=== PATIENT | male | born 1945 | race Caucasian/White ===

== ENCOUNTER → 2019-06-22 | Outpatient (CLI) | payer MEDICARE ==
[~2019-06-22] MED LIST: ALLO300 PO; ASPI325; ASPI81CH PO; ATOR10; Aspirin EC81 MG; CRUTCH USE; Cialis5 MG; GABA300 PO; IBUP800 PO; LISI20 PO; MULTI VITAMIN1 EACH PO; OXYACE7.5T PO; RANI150 PO; RXOXYACE PO; Simvastatin20 MG PO; VITAMIN D3400 UNIT PO; Zyloprim300 MG PO; [UNRECOGNIZED DRUG - OTHER]
[2019-06-22 12:30] LABS: BASOPHILS ABSOLUTE AUTO 0.02 K/mm3 (0.00-0.23); BASOPHILS PERCENT AUTO 0 % (0-2); EOSINOPHILS ABSOLUTE AUTO 0.15 K/mm3 (0.00-0.68); EOSINOPHILS PERCENT AUTO 2 % (0-6); Hematocrit 38.9 % (37.0-53.0); Hemoglobin 13.2 g/dL (13.5-17.5); IMMATURE GRAN ABSOLUTE AUTO 0.02 K/mm3 (0.00-0.10); IMMATURE GRAN PERCENT AUTO 0 % (0-1); LYMPHOCYTES ABSOLUTE AUTO 1.91 K/mm3 (0.84-5.20); LYMPHOCYTES PERCENT AUTO 29 % (21-46); MONOCYTES ABSOLUTE AUTO 0.65 K/mm3 (0.16-1.47); MONOCYTES PERCENT AUTO 10 % (4-13); Mean Corpuscular HGB 30.2 pg (26.0-34.0); Mean Corpuscular HGB Conc 33.9 g/dL (31.5-36.5); Mean Corpuscular Volume 89 fL (80-100); Mean Platelet Volume 9.9 fL (9.1-12.4); NEUTROPHILS ABSOLUTE AUTO 3.81 K/mm3 (1.96-9.15); NEUTROPHILS PERCENT AUTO 58 % (41-73); Platelet Count 238 K/mm3 (150-400); RDW Coefficient Variation 13.4 % (11.7-14.2); Red Blood Cell Count 4.37 M/mm3 (4.30-5.90); White Blood Cell Count 6.56 K/mm3 (4.00-11.30)
== END | disposition home or self-care (01) ==
LOC: LAB EV 12:23 → LAB SHORT 12:23
PROVIDERS: Physician Assistant Surgical
DX: E86.0 Dehydration (principal)
CPT/HCPCS: 85025

== ENCOUNTER → 2020-08-27 | Outpatient (CLI) | payer OTHER | END | disposition home or self-care (01) | LOC: PLD 16:15 → LAB SHORT 16:15 | DX: D22.5 Melanocytic nevi of trunk (principal); D22.72 Melanocytic nevi of left lower limb, including hip | CPT/HCPCS: 88305 ==

== ENCOUNTER → 2021-01-21 | Outpatient (CLI) | payer OTHER | END | disposition home or self-care (01) | LOC: PLD 11:30 → LAB SHORT 11:30 | DX: R30.9 Painful micturition, unspecified (principal) | CPT/HCPCS: 87086 ==

== ENCOUNTER → 2021-09-02 | Outpatient (CLI) | payer OTHER ==
[2021-09-02 12:54] LABS: PSA, %Free 16.3 %
== END | disposition home or self-care (01) ==
LOC: LAB SHORT 10:52
PROVIDERS: Family Medicine
DX: N40.0 Benign prostatic hyperplasia without lower urinary tract symptoms (principal); R79.89 Other specified abnormal findings of blood chemistry
CPT/HCPCS: 84153; 84154

== ENCOUNTER → 2022-04-21 | Outpatient (CLI) | payer OTHER | END | disposition home or self-care (01) | LOC: LAB SHORT 18:39 → LAB 18:39 | DX: R30.9 Painful micturition, unspecified (principal) | CPT/HCPCS: 87086 ==

== ENCOUNTER → 2022-04-22 | Outpatient (CLI) | payer OTHER ==
[2022-04-22 11:08] LABS: BASOPHILS ABSOLUTE AUTO 0.03 K/mm3 (0.00-0.23); BASOPHILS PERCENT AUTO 0 % (0-2); EOSINOPHILS ABSOLUTE AUTO 0.16 K/mm3 (0.00-0.68); EOSINOPHILS PERCENT AUTO 2 % (0-6); Hematocrit 40.1 % (37.0-53.0); Hemoglobin 13.6 g/dL (13.5-17.5); IMMATURE GRAN ABSOLUTE AUTO 0.02 K/mm3 (0.00-0.10); IMMATURE GRAN PERCENT AUTO 0 % (0-1); LYMPHOCYTES ABSOLUTE AUTO 2.17 K/mm3 (0.84-5.20); LYMPHOCYTES PERCENT AUTO 24 % (21-46); MONOCYTES ABSOLUTE AUTO 0.85 K/mm3 (0.16-1.47); MONOCYTES PERCENT AUTO 9 % (4-13); Mean Corpuscular HGB 30.4 pg (26.0-34.0); Mean Corpuscular HGB Conc 33.9 g/dL (31.5-36.5); Mean Corpuscular Volume 90 fL (80-100); Mean Platelet Volume 9.8 fL (9.1-12.4); NEUTROPHILS ABSOLUTE AUTO 5.85 K/mm3 (1.96-9.15); NEUTROPHILS PERCENT AUTO 64 % (41-73); Platelet Count 254 K/mm3 (150-400); RDW Standard Deviation 42.9 fL (35.1-46.3); Red Blood Cell Count 4.47 M/mm3 (4.30-5.90); White Blood Cell Count 9.08 K/mm3 (4.00-11.30)
[2022-04-22 11:18] LABS: Albumin, Blood 3.5 g/dL (3.4-5.0); Albumin/Globulin Ratio 1.1 (0.8-1.8); Bilirubin, Total 0.7 mg/dL (0.1-1.0); Bun/Creatinine Ratio 17.9 (12.0-20.0); Calcium, Blood 9.9 mg/dL (8.5-10.1); Creatinine, Blood 0.78 mg/dL (0.60-1.20); Globulin, Blood 3.2 g/dL (2.2-4.0); Potassium, Blood 3.9 mmol/L (3.5-5.5); Total Protein, Blood 6.7 g/dL (6.4-8.2)
== END | disposition home or self-care (01) ==
LOC: LAB 11:01 → LAB SHORT 11:01
PROVIDERS: Chiropractor
DX: R10.32 Left lower quadrant pain (principal)
CPT/HCPCS: 80053; 85025

== ENCOUNTER → 2022-05-13 | Outpatient (CLI) | payer OTHER ==
[2022-05-13 09:01] LABS: BASOPHILS ABSOLUTE AUTO 0.04 K/mm3 (0.00-0.23); BASOPHILS PERCENT AUTO 1 % (0-2); EOSINOPHILS ABSOLUTE AUTO 0.21 K/mm3 (0.00-0.68); EOSINOPHILS PERCENT AUTO 3 % (0-6); Hematocrit 40.7 % (37.0-53.0); Hemoglobin 13.9 g/dL (13.5-17.5); IMMATURE GRAN ABSOLUTE AUTO 0.02 K/mm3 (0.00-0.10); IMMATURE GRAN PERCENT AUTO 0 % (0-1); LYMPHOCYTES ABSOLUTE AUTO 1.68 K/mm3 (0.84-5.20); LYMPHOCYTES PERCENT AUTO 22 % (21-46); MONOCYTES ABSOLUTE AUTO 0.79 K/mm3 (0.16-1.47); MONOCYTES PERCENT AUTO 10 % (4-13); Mean Corpuscular HGB 30.5 pg (26.0-34.0); Mean Corpuscular HGB Conc 34.2 g/dL (31.5-36.5); Mean Corpuscular Volume 90 fL (80-100); Mean Platelet Volume 9.7 fL (9.1-12.4); NEUTROPHILS ABSOLUTE AUTO 4.92 K/mm3 (1.96-9.15); NEUTROPHILS PERCENT AUTO 64 % (41-73); Platelet Count 280 K/mm3 (150-400); RDW Coefficient Variation 12.9 % (11.7-14.2); RDW Standard Deviation 42.3 fL (35.1-46.3); Red Blood Cell Count 4.55 M/mm3 (4.30-5.90); White Blood Cell Count 7.66 K/mm3 (4.00-11.30)
[2022-05-13 09:13] LABS: Albumin, Blood 3.9 g/dL (3.4-5.0); Albumin/Globulin Ratio 1.2 (0.8-1.8); Bilirubin, Total 0.5 mg/dL (0.1-1.0); Bun/Creatinine Ratio 25.8 (12.0-20.0); Calcium, Blood 10.1 mg/dL (8.5-10.1); Creatinine, Blood 0.89 mg/dL (0.60-1.20); Globulin, Blood 3.3 g/dL (2.2-4.0); Potassium, Blood 4.4 mmol/L (3.5-5.5); Total Protein, Blood 7.2 g/dL (6.4-8.2)
== END | disposition home or self-care (01) ==
LOC: LAB 08:56 → LAB SHORT 08:56
PROVIDERS: Physician Assistant
DX: R07.9 Chest pain, unspecified (principal)
CPT/HCPCS: 80053; 84484; 85025

== ENCOUNTER 2023-03-17 13:24 | Inpatient (IN) | payer OTHER ==
[~2023-03-17] VITALS: Ht 188 cm; Wt 89.6 kg
[2023-03-17 14:52] LABS: BASOPHILS ABSOLUTE AUTO 0.02 K/mm3 (0.00-0.23); BASOPHILS PERCENT AUTO 0 % (0-2); EOSINOPHILS ABSOLUTE AUTO 0.52 K/mm3 (0.00-0.68); EOSINOPHILS PERCENT AUTO 5 % (0-6); Hematocrit 37.7 % (37.0-53.0); Hemoglobin 12.5 g/dL (13.5-17.5); IMMATURE GRAN ABSOLUTE AUTO 0.03 K/mm3 (0.00-0.10); IMMATURE GRAN PERCENT AUTO 0 % (0-1); LYMPHOCYTES ABSOLUTE AUTO 0.97 K/mm3 (0.84-5.20); LYMPHOCYTES PERCENT AUTO 10 % (21-46); MONOCYTES ABSOLUTE AUTO 0.83 K/mm3 (0.16-1.47); MONOCYTES PERCENT AUTO 9 % (4-13); Mean Corpuscular HGB 30.2 pg (26.0-34.0); Mean Corpuscular HGB Conc 33.2 g/dL (31.5-36.5); Mean Corpuscular Volume 91 fL (80-100); Mean Platelet Volume 10.4 fL (9.1-12.4); NEUTROPHILS PERCENT AUTO 75 % (41-73); Platelet Count 244 K/mm3 (150-400); RDW Coefficient Variation 13.2 % (11.7-14.2); RDW Standard Deviation 44.2 fL (35.1-46.3); Red Blood Cell Count 4.14 M/mm3 (4.30-5.90); White Blood Cell Count 9.57 K/mm3 (4.00-11.30)
[2023-03-17 15:17] LABS: Albumin, Blood 3.3 g/dL (3.4-5.0); Albumin/Globulin Ratio 1.1 (0.8-1.8); Bilirubin, Total 0.3 mg/dL (0.1-1.0); Bun/Creatinine Ratio 23.5 (12.0-20.0); Calcium, Blood 9.8 mg/dL (8.5-10.1); Creatinine, Blood 0.89 mg/dL (0.60-1.20); Globulin, Blood 3.1 g/dL (2.2-4.0); Magnesium, Blood 2.1 mg/dL (1.6-2.4); Potassium, Blood 4.2 mmol/L (3.5-5.5); Total Protein, Blood 6.4 g/dL (6.4-8.2)
[2023-03-17 16:20] LABS: Source, Urine Voided
[2023-03-17 16:30] LABS: Appearance, Urine Clear (Clear); Bilirubin, Urine Neg (Neg); Blood, Urine Neg (Neg); Color, Urine Yellow (P-Yellow); Glucose Qualitative, Urine Neg (Neg); Ketones, Urine Neg (Neg); Leukocyte Esterase, Urine Neg (Neg); Nitrite, Urine Neg (Neg); Protein, Urine Neg (Neg); Specific Gravity, Urine 1.015 (1.003-1.022); Urobilinogen, Urine NORM (Normal); pH, Urine 6.5 (5.0-8.0)
[2023-03-17] MEDS ORDERED: FAMO20 PO (17:21)
[2023-03-17] MEDS ORDERED: SYNTHROID75 MCG (17:21)
[2023-03-17] MEDS ORDERED: TAMSULOSIN HCL0.4 M1 PO (17:21)
[2023-03-17] MEDS ORDERED: AMLODIPINE BESYL5 MG PO (17:21)
[2023-03-17 20:17] VITALS: BP 144/63
[2023-03-18 03:33] VITALS: BP 167/88
[2023-03-18 05:56] LABS: BASOPHILS ABSOLUTE AUTO 0.01 K/mm3 (0.00-0.23); BASOPHILS PERCENT AUTO 0 % (0-2); EOSINOPHILS ABSOLUTE AUTO 0.37 K/mm3 (0.00-0.68); EOSINOPHILS PERCENT AUTO 5 % (0-6); Hematocrit 39.3 % (37.0-53.0); Hemoglobin 13.1 g/dL (13.5-17.5); IMMATURE GRAN ABSOLUTE AUTO 0.02 K/mm3 (0.00-0.10); IMMATURE GRAN PERCENT AUTO 0 % (0-1); LYMPHOCYTES ABSOLUTE AUTO 1.34 K/mm3 (0.84-5.20); LYMPHOCYTES PERCENT AUTO 19 % (21-46); MONOCYTES ABSOLUTE AUTO 0.66 K/mm3 (0.16-1.47); MONOCYTES PERCENT AUTO 9 % (4-13); Mean Corpuscular HGB Conc 33.3 g/dL (31.5-36.5); Mean Corpuscular Volume 90 fL (80-100); Mean Platelet Volume 9.5 fL (9.1-12.4); NEUTROPHILS PERCENT AUTO 66 % (41-73); Platelet Count 248 K/mm3 (150-400); RDW Coefficient Variation 13.1 % (11.7-14.2); RDW Standard Deviation 43.3 fL (35.1-46.3); Red Blood Cell Count 4.37 M/mm3 (4.30-5.90)
[2023-03-18 06:17] LABS: Albumin, Blood 3.3 g/dL (3.4-5.0); Bilirubin, Total 0.5 mg/dL (0.1-1.0); Bun/Creatinine Ratio 19.8 (12.0-20.0); Calcium, Blood 9.9 mg/dL (8.5-10.1); Creatinine, Blood 0.66 mg/dL (0.60-1.20); Globulin, Blood 3.3 g/dL (2.2-4.0); Potassium, Blood 3.9 mmol/L (3.5-5.5); Total Protein, Blood 6.6 g/dL (6.4-8.2)
--- NOTE | 2023-03-18 06:43 | NUR ---
SUMMARY PT RESTING IN BED WITHOUT COMPLAINT. AT BEDSIDE.NO BM THIS SHIFT.
[2023-03-18 07:33] VITALS: BP 138/60
--- NOTE | 2023-03-18 11:08 | NUR ---
Pt. is awake and sitting up in bed when he welcomes my visit. Spouse is present. Pt. is pleasant, but mildly unsettled by the unknown cause of his ailment. Listen is empathy and a calming presence. Facilitate a life review and establish rapport. Pt. and spouse are people of sabine, so matters of sabine and belief were discussed. Pt. displayed evidence of engagement and trust. Prayed with Pt. and spouse. Pt. and spouse requested this bottle blowing machine tender's contact info, and it was provided, Pt. and spouse verbalized gratitude for the spiritual care visit.
[2023-03-18 11:27] LABS: Adenovirus F 40/41 Not Detected (NOT DETECT); Astrovirus Not Detected (NOT DETECT); Campylobacter Sp Not Detected (NOT DETECT); Cryptosporidium Not Detected (NOT DETECT); Cyclospora Cayetanensis Not Detected (NOT DETECT); E. Coli O157 Not Detected (NOT DETECT); Entamoeba Histolytica Not Detected (NOT DETECT); Enteroaggregative E. coli-EAEC Not Detected (NOT DETECT); Enteropathogenic E. coli-EPEC Not Detected (NOT DETECT); Enterotoxigenic E. coli-ETEC Not Detected (NOT DETECT); Giardia Lamblia Not Detected (NOT DETECT); Norovirus GI/GII Not Detected (NOT DETECT); Plesiomonas Shigelloides Not Detected (NOT DETECT); Rotavirus A Not Detected (NOT DETECT); Salmonella Sp Not Detected (NOT DETECT); Sapovirus Not Detected (NOT DETECT); Shiga Toxin-prod E. coli-STEC Not Detected (NOT DETECT); Shigella/Enteroin E. coli-EIEC Not Detected (NOT DETECT); Vibrio Cholerae Not Detected (NOT DETECT); Vibrio Sp Not Detected (NOT DETECT); Yersinia Enterocolitica Not Detected (NOT DETECT)
--- NOTE | 2023-03-18 11:45 | NUR ---
PT LAYING IN BED VISITING WITH HIS . HELPED HIM TO THE RESTROOM AND BACK TO BED. PT IS SITTING UP IN BED WITH CALL LIGHT WITHIN REACH AND BED ALARM ON.
--- NOTE | 2023-03-18 13:47 | NUR ---
PATIENT STOOD OUT OF BED AND TRIED TO CHANGE HIS CLOTHES. I ASKED HIM WHERE HE WAS AND HE SAID HE WAS IN [place]. DAUGHTER WAS IN THE ROOM AND EXPLAINED TO HIM THAT HE WAS AT THE HOSPITAL IN [place]. PATIENT LAYED BACK IN BED WITH CALL WITHIN REACH AND BED ALARM ON FOR SAFETY.
--- NOTE | 2023-03-18 15:14 | NUR ---
PATIENT SITTING UP IN BED VISITING WITH FAMLIY MEMBERS. CALL LIGHT WITHIN REACH AND BED ALARM ON.
[2023-03-18 16:58] VITALS: BP 130/48
[2023-03-18 18:26] VITALS: BP 142/76
[2023-03-18 19:06] VITALS: BP 135/69
--- NOTE | 2023-03-18 19:27 | NUR ---
SHIFT SUMMARY NO ACUTE CHANGES. PATIENT IS ABLE TO HAVE CLEAR FLUIDS NOW, HE TOLERATED THEM WELL, DENIED NAUSEA OR ABDOMINAL PAIN. PATIENT WAS CONFUSED THROUGHT THE DAY, I HAD TO REORIENT HIM TO PLACE AND REASON. HIS FAMILY VISITED [facility] SATELLITE THE DAY. HE IS ABLE TO AMBULATE TO THE RESTROOM WITH 1 PERSON ASSIST. HE IS CURRENTLY SITTING IN BED VISITING WITH FAMILY MEMBERS. CALL LIGHT WITHIN REACH AND BED ALARM ON.
--- NOTE | 2023-03-18 19:35 | NUR ---
REVIEWED SN DOCUMENTATION
[2023-03-19 02:40] VITALS: BP 119/68
[2023-03-19 07:30] VITALS: BP 116/62
--- NOTE | 2023-03-19 07:37 | NUR ---
SUJMMARY PT REPORTS SLEPT WELL.NO C/O NAUSEA,OR ABD PAIN.
[2023-03-19 09:09] LABS: BASOPHILS ABSOLUTE AUTO 0.02 K/mm3 (0.00-0.23); BASOPHILS PERCENT AUTO 0 % (0-2); EOSINOPHILS ABSOLUTE AUTO 0.71 K/mm3 (0.00-0.68); EOSINOPHILS PERCENT AUTO 10 % (0-6); Hematocrit 37.1 % (37.0-53.0); Hemoglobin 12.5 g/dL (13.5-17.5); IMMATURE GRAN ABSOLUTE AUTO 0.01 K/mm3 (0.00-0.10); IMMATURE GRAN PERCENT AUTO 0 % (0-1); LYMPHOCYTES ABSOLUTE AUTO 1.06 K/mm3 (0.84-5.20); LYMPHOCYTES PERCENT AUTO 16 % (21-46); MONOCYTES ABSOLUTE AUTO 0.69 K/mm3 (0.16-1.47); MONOCYTES PERCENT AUTO 10 % (4-13); Mean Corpuscular HGB 30.6 pg (26.0-34.0); Mean Corpuscular HGB Conc 33.7 g/dL (31.5-36.5); Mean Corpuscular Volume 91 fL (80-100); Mean Platelet Volume 9.9 fL (9.1-12.4); NEUTROPHILS ABSOLUTE AUTO 4.34 K/mm3 (1.96-9.15); NEUTROPHILS PERCENT AUTO 64 % (41-73); Platelet Count 235 K/mm3 (150-400); RDW Standard Deviation 43.1 fL (35.1-46.3); Red Blood Cell Count 4.08 M/mm3 (4.30-5.90); White Blood Cell Count 6.83 K/mm3 (4.00-11.30)
[2023-03-19 10:22] LABS: Albumin, Blood 3.1 g/dL (3.4-5.0); Bilirubin, Total 0.5 mg/dL (0.1-1.0); Bun/Creatinine Ratio 14.4 (12.0-20.0); Calcium, Blood 9.7 mg/dL (8.5-10.1); Creatinine, Blood 0.76 mg/dL (0.60-1.20); Globulin, Blood 3.1 g/dL (2.2-4.0); Potassium, Blood 4.1 mmol/L (3.5-5.5); Total Protein, Blood 6.2 g/dL (6.4-8.2)
[2023-03-19] MEDS ORDERED: ACET325 PO (11:27)
[2023-03-19] MEDS ORDERED: METR500 PO (11:28)
[2023-03-19] MEDS ORDERED: VISBIOME 112.51 EACH PO (11:32)
[2023-03-19] MEDS ORDERED: CIPR500 PO (11:33)
--- NOTE | 2023-03-19 12:35 | NUR ---
PATIENT IN BED SITTING UP AND EATING LUNCH. PATIENT HAS FAMILY VISITING. CALL LIGHT WITHIN REACH, BED ALARM ON.
[2023-03-19 13:40] VITALS: BP 136/84
--- NOTE | 2023-03-19 14:33 | NUR ---
DISCHARGED REVIEWED DC INSTRUCTIONS W/SPOUSE. VERBALIZED UNDERSTANDING. SN TOOK FINAL VS AND DC IV, CATHETER INTACT. PRESCRIPTIONS FAXED TO [employer] PER PT REQUEST. PT LEFT UNIT IN WHEELCHAIR, ACCOMPANIED BY SPOUSE WHO HAD POSSESSIONS AND DC PAPERWORK IN HAND.
--- NOTE | 2023-03-19 14:58 | NUR ---
SHIFT SUMMARY NO ACUTE CHANGES. PATIENT IS NOW ON A LOW FIBER DIET AND IS TOLERATING WELL. DISCHARGE PLANNED FOR AFTER LUNCH. PATIENT HAD A SOFT/LOOSE BM, WAS NOTIFIED OF THE BM AND CONTINUED WITH DISCHARGE. PATIENT DENIED ABDOMINAL PAIN OR TENDERNESS. PATIENT WAS WHEELED OUT TO CAR BY NURSE TRANSITIONAL ACCOMPANIED BY .
--- NOTE | 2023-03-19 16:00 | NUR ---
REVIEWED SN DOCUMENTATION
== END 2023-03-19 14:35 | disposition home or self-care (01) | DRG 393 ==
LOC: ER 13:24 → SURS 13:25
PROVIDERS: Emergency Medicine; Family Medicine; Nurse Practitioner Acute Care; Surgery; ADMIT Family Medicine
DX: K63.89 Other specified diseases of intestine (principal); G92.8 Other toxic encephalopathy; I10 Essential (primary) hypertension; E78.5 Hyperlipidemia, unspecified; M10.9 Gout, unspecified; K21.9 Gastro-esophageal reflux disease without esophagitis; K80.20 Calculus of gallbladder without cholecystitis without obstruction; I48.91 Unspecified atrial fibrillation; G62.9 Polyneuropathy, unspecified; F03.90 Unspecified dementia, unspecified severity, without behavioral disturbance, psychotic disturbance, mood disturbance, and anxiety; E03.9 Hypothyroidism, unspecified; R62.7 Adult failure to thrive; R63.4 Abnormal weight loss; Z96.652 Presence of left artificial knee joint; Z90.49 Acquired absence of other specified parts of digestive tract; Z98.890 Other specified postprocedural states; Z85.46 Personal history of malignant neoplasm of prostate; Z68.28 Body mass index [BMI] 28.0-28.9, adult; Z79.899 Other long term (current) drug therapy; Z91.048 Other nonmedicinal substance allergy status; Z79.811 Long term (current) use of aromatase inhibitors; Z79.82 Long term (current) use of aspirin; Z87.19 Personal history of other diseases of the digestive system
CPT/HCPCS: 36415; 74177; 80053; 81003; 83735; 84439; 84443; 84484; 85025; 87507; 93005; 93010; 96361; 96365-59; 96366; 96368; 99285-25; A9270; C9113; G0378; J1956; J7030; Q9967

== ENCOUNTER → 2023-05-22 | Outpatient (CLI) | payer OTHER ==
[~2023-05-22] MED LIST changes: +ACET325 PO; +AMLODIPINE BESYL5 MG PO; +CIPR500 PO; +FAMO20 PO; +METR500 PO; +SYNTHROID75 MCG; +TAMSULOSIN HCL0.4 M1 PO; +VISBIOME 112.51 EACH PO
[2023-05-22 13:47] LABS: Adenovirus F 40/41 Not Detected (NOT DETECT); Astrovirus Not Detected (NOT DETECT); Campylobacter Sp Not Detected (NOT DETECT); Cryptosporidium Not Detected (NOT DETECT); Cyclospora Cayetanensis Not Detected (NOT DETECT); E. Coli O157 Not Detected (NOT DETECT); Entamoeba Histolytica Not Detected (NOT DETECT); Enteroaggregative E. coli-EAEC Not Detected (NOT DETECT); Enteropathogenic E. coli-EPEC Not Detected (NOT DETECT); Enterotoxigenic E. coli-ETEC Not Detected (NOT DETECT); Giardia Lamblia Not Detected (NOT DETECT); Norovirus GI/GII Not Detected (NOT DETECT); Plesiomonas Shigelloides Not Detected (NOT DETECT); Rotavirus A Not Detected (NOT DETECT); Salmonella Sp Not Detected (NOT DETECT); Sapovirus Not Detected (NOT DETECT); Shiga Toxin-prod E. coli-STEC Not Detected (NOT DETECT); Shigella/Enteroin E. coli-EIEC Not Detected (NOT DETECT); Vibrio Cholerae Not Detected (NOT DETECT); Vibrio Sp Not Detected (NOT DETECT); Yersinia Enterocolitica Not Detected (NOT DETECT)
== END ==
LOC: LAB 09:00 → LAB SHORT 09:00
PROVIDERS: Family Medicine
DX: R19.7 Diarrhea, unspecified (principal)
CPT/HCPCS: 87507

== ENCOUNTER 2024-01-05 12:39 | Day surgery (SDC) | payer OTHER ==
[~2024-01-05] VITALS: Ht 193 cm; Wt 84.5 kg
[~2024-01-05 12:39] MED LIST changes: +AMLO5 PO; -AMLODIPINE BESYL5 MG PO; +CALCIUM 500-VI1 EAC4 PO; +GLUCOSAMINE COMPLEX PO; +Lactated Ringer's 1,000 ML IV ONE; -MULTI VITAMIN1 EACH PO; +MULTI-VITAMIN1 EAC2 PO; -SYNTHROID75 MCG; +SYNTHROID75 MCG PO; +VITAMIN D350 MC3 PO; +propofoL 50 ML IV ONE
[2024-01-05] MEDS ORDERED: Lactated Ringer's 1,000 ML IV ONE (13:29)
[2024-01-05 14:39] VITALS: BP 125/69
== END 2024-01-05 14:40 | disposition home or self-care (01) ==
LOC: ORSCSDS 12:39
PROVIDERS: Specialist
PROC: 0D798ZZ Dilation of Duodenum, Via Natural or Artificial Opening Endoscopic (ICD-10-PCS; principal; 2024-01-05 14:00)
PROC: 0DB68ZX Excision of Stomach, Via Natural or Artificial Opening Endoscopic, Diagnostic (ICD-10-PCS; principal; 2024-01-05 14:00)
DX: R10.13 Epigastric pain (principal); K21.00 Gastro-esophageal reflux disease with esophagitis, without bleeding; K31.5 Obstruction of duodenum; R63.4 Abnormal weight loss; R19.7 Diarrhea, unspecified; Z85.46 Personal history of malignant neoplasm of prostate; I10 Essential (primary) hypertension; E78.5 Hyperlipidemia, unspecified; E07.9 Disorder of thyroid, unspecified; Z79.899 Other long term (current) drug therapy
CPT/HCPCS: 88305; 88312; C1726; J2704; J7120

== ENCOUNTER 2024-01-07 11:51 | Inpatient (IN) | payer OTHER ==
[~2024-01-07] VITALS: Ht 193 cm; Wt 84.6 kg
[~2024-01-07 11:51] MED LIST changes: -Lactated Ringer's 1,000 ML IV ONE; -propofoL 50 ML IV ONE
[2024-01-07] MEDS ORDERED: CHOLESTYRAMI239.4 G1 PO (12:12)
[2024-01-07 12:23] LABS: BASOPHILS ABSOLUTE AUTO 0.02 K/mm3 (0.00-0.23); BASOPHILS PERCENT AUTO 0 % (0-2); EOSINOPHILS ABSOLUTE AUTO 0.24 K/mm3 (0.00-0.68); EOSINOPHILS PERCENT AUTO 5 % (0-6); Hematocrit 36.9 % (37.0-53.0); Hemoglobin 12.4 g/dL (13.5-17.5); IMMATURE GRAN ABSOLUTE AUTO 0.01 K/mm3 (0.00-0.10); IMMATURE GRAN PERCENT AUTO 0 % (0-1); LYMPHOCYTES ABSOLUTE AUTO 0.97 K/mm3 (0.84-5.20); LYMPHOCYTES PERCENT AUTO 18 % (21-46); MONOCYTES ABSOLUTE AUTO 0.48 K/mm3 (0.16-1.47); MONOCYTES PERCENT AUTO 9 % (4-13); Mean Corpuscular HGB 30.5 pg (26.0-34.0); Mean Corpuscular HGB Conc 33.6 g/dL (31.5-36.5); Mean Corpuscular Volume 91 fL (80-100); NEUTROPHILS ABSOLUTE AUTO 3.59 K/mm3 (1.96-9.15); NEUTROPHILS PERCENT AUTO 68 % (41-73); Platelet Count 227 K/mm3 (150-400); RDW Coefficient Variation 12.9 % (11.7-14.2); RDW Standard Deviation 42.5 fL (35.1-46.3); Red Blood Cell Count 4.07 M/mm3 (4.30-5.90); White Blood Cell Count 5.31 K/mm3 (4.00-11.30)
[2024-01-07 12:52] LABS: Albumin, Blood 3.4 g/dL (3.4-5.0); Albumin/Globulin Ratio 1.2 (0.8-1.8); Bilirubin, Total 0.4 mg/dL (0.1-1.0); Bun/Creatinine Ratio 20.1 (12.0-20.0); Calcium, Blood 9.8 mg/dL (8.5-10.1); Creatinine, Blood 0.9 mg/dL (0.60-1.20); Globulin, Blood 2.9 g/dL (2.2-4.0); Potassium, Blood 3.7 mmol/L (3.5-5.5); Total Protein, Blood 6.3 g/dL (6.4-8.2)
[2024-01-07] MEDS ORDERED: Lidocaine HCl 4% Topical Soln 50 ML BTL TOP ONE (15:00)
[2024-01-07] MEDS ORDERED: FLU VACC QS2023-24(6MOS UP)/PF 60 MCG/0.5 ML SYRINGE IM SCH (15:55)
[2024-01-07 18:06] VITALS: BP 141/62
--- NOTE | 2024-01-07 18:30 | NUR ---
ADMISSION PATIENT ADMITTED TO MEDICAL FLOOR. PATIENT ALERT BUT CONFUSED. USING WORD SALAD AT TIMES. STATES THAT THIS IS NORMAL FOR HIM. PATIENT ANXIOUS AND RESTLESS. NG REMOVED PRIOR TO TRANSFER TO MEDICAL FLOOR. PATIENT VERBALIZES CHRONIC BACK PAIN AND R FOOT PAIN FROM RECENT PODIATRY VISIT. PATIENT HAD RECENT ESOPHAGEAL DILATATION AN OUTPATIENT. DURING ADMISSION PROCESS, PATIENT STATED HE NEEDED TO SPIT. PATIENT SPIT OUT A SMALL AMOUNT OF LIZA RED BLOOD. NO CLOTS SEEN. REPORT GIVEN TO BILINGUAL RESEARCH INTERVIEWER. NO FLUIDS ORDERED AT THIS TIME. FAMILY AT BEDSIDE AND CONCERNED ABOUT DEHYDRATION SINCE PATIENT HAS NOT BEEN ABLE TO EAT OR DRINK FOR SOME TIME WITH THIS STRICTURE.
[2024-01-07 20:44] VITALS: BP 125/60
[2024-01-07] MEDS ORDERED: Lactated Ringer's 1,000 ML IV SCH (23:10)
--- NOTE | 2024-01-08 01:32 | NUR ---
MULTIPLE ATTEMPTS TO GET OOB. VERY UNSTEADY ON FEET. BECAME ANGRY AND VERBALLY THREATENING TO STAFF WHEN ENCOURAGED TO GET BACK IN BED FOR HIS SAFETY. CALL PLACED TO MD, ORDERS FOR MARCEL OBTAINED. PLACED IN MARCEL. PT HAD PULLED OUT IV AND REFUSED TO ALLOW ANOTHER PLACED. TEACHING RE NPO FOR ESOPAHAGEAL AND STOMACH ISSUE AND THAT HE NEEDED THE IV FLUIDS FOR HYDRATION. BECAME VERY AGITATED. CALL PLACED TO HIS . SPOKE TO HIM, HE BECAME AGITATED WITH HER AND HUNG UP. TO COME IN WITH DAUGHTER TO ENCOURAGE PT TO COMPLY WITH MEDICAL REGIMINE. CALL LIGHT IN REACH. RAIL SUP X 3. MARCEL INTACT
--- NOTE | 2024-01-08 02:01 | NUR ---
AND DAUGHTER HERE, TALKING TO PT. CALL LIGHT IN REACH
--- NOTE | 2024-01-08 04:45 | NUR ---
STRUCTURAL STEEL WORKER SUMMARY VSS. FAMILY WS HERE AT SHIFT COMMENCE. PT SEEMED TO BE MORE RECEPTIVE TO CARE. FAMILY LEFT. PT PO FOR ESOPHAGEAL AND STOMACH ISSUES - SEE ER DOCUMENTATION. CALL WAS PLACED TO MD BUSINESS FUNCTIONAL ANALYST FOR IVF PT WAS NPO AND WAS FOR HYDRATION. WHEN STAFF CAME IN TO ROOM TO START IVF, PT HAD PULLED OUT IV AND WAS CLIMBING OOB, VERY UNTEADY AND CONFRONTATIONAL WITH STAFF. REFUSED TO CALM DOWN. CALL PLACED TO MARCEL CRAWFORD ORDERS OBTAINED FOR PT SAFETY - VERY UNSTEADDY AND REFUSED TO REMAIN IN BED. PT CONTINUED TO ESCALAATE. WAS NOTIFIED AND SHE AND DAUGHTER CAME BACK TO HOSPITAL. PT WAS IN MARCEL UNTIL FAMILY COULD TALK HIM INTO ACCEPTING IVF. NEW IV STARTED AND IVF OF LR INFUSING AT 75 ML/HR. MARCEL DC'D AT 0400. HAS BEEN RESTING QUIETLY WITH OCCASIONAL EPISODES OF WAKEFULNESS SINCE. FAMILY AT BEDSIDE FOR PT COMFORT. CALL LIGHT IN REACH. RAILS UP X 3 FOR SAFETY
[2024-01-08 05:54] LABS: BASOPHILS ABSOLUTE AUTO 0.02 K/mm3 (0.00-0.23); BASOPHILS PERCENT AUTO 0 % (0-2); EOSINOPHILS ABSOLUTE AUTO 0.15 K/mm3 (0.00-0.68); EOSINOPHILS PERCENT AUTO 2 % (0-6); Hematocrit 36.5 % (37.0-53.0); Hemoglobin 12.3 g/dL (13.5-17.5); IMMATURE GRAN ABSOLUTE AUTO 0.02 K/mm3 (0.00-0.10); IMMATURE GRAN PERCENT AUTO 0 % (0-1); LYMPHOCYTES ABSOLUTE AUTO 1.05 K/mm3 (0.84-5.20); LYMPHOCYTES PERCENT AUTO 12 % (21-46); MONOCYTES ABSOLUTE AUTO 0.76 K/mm3 (0.16-1.47); MONOCYTES PERCENT AUTO 9 % (4-13); Mean Corpuscular HGB 30.1 pg (26.0-34.0); Mean Corpuscular HGB Conc 33.7 g/dL (31.5-36.5); Mean Corpuscular Volume 90 fL (80-100); Mean Platelet Volume 10.4 fL (9.1-12.4); NEUTROPHILS ABSOLUTE AUTO 6.73 K/mm3 (1.96-9.15); NEUTROPHILS PERCENT AUTO 77 % (41-73); Platelet Count 220 K/mm3 (150-400); RDW Coefficient Variation 12.8 % (11.7-14.2); RDW Standard Deviation 42.2 fL (35.1-46.3); Red Blood Cell Count 4.08 M/mm3 (4.30-5.90); White Blood Cell Count 8.73 K/mm3 (4.00-11.30)
[2024-01-08 06:46] LABS: Alanine Aminotransfer (ALT/SGP 20 U/L (12-78); Albumin, Blood 3.2 g/dL (3.4-5.0); Albumin/Globulin Ratio 1.1 (0.8-1.8); Alk Phos 107 U/L (50-136); Anion Gap Unable to Calculate mmol/L (6-16); Aspartate Aminotrans (AST/SGOT 14 U/L (12-37); Bilirubin, Total 0.6 mg/dL (0.1-1.0); Blood Urea Nitrogen 13 mg/dL (8-24); Bun/Creatinine Ratio 17.6 (12.0-20.0); CO2, Blood 31 mmol/L (21-32); Calcium, Blood 9.9 mg/dL (8.5-10.1); Chloride, Blood 111 mmol/L (98-108); Creatinine, Blood 0.74 mg/dL (0.60-1.20); Globulin, Blood 2.9 g/dL (2.2-4.0); Glomerular Filtration Rate 92 (60-); Glucose, Blood 108 mg/dL (70-99); Phosphorus, Blood 2.3 mg/dL (2.5-4.9); Sodium, Blood 141 mmol/L (136-145); Total Protein, Blood 6.1 g/dL (6.4-8.2)
[2024-01-08 07:56] VITALS: BP 117/60
[2024-01-08] MEDS ORDERED: Enoxaparin 40 MG/0.4 ML SYR SC SCH (09:00)
[2024-01-08] MEDS ORDERED: Pantoprazole Sodium 40 MG Injection IV SCH (09:00)
[2024-01-08] MEDS ORDERED: Levothyroxine Sodium 100 MCG Vial IV SCH (09:00)
--- NOTE | 2024-01-08 14:13 | NUR ---
DISCHARGE NOTE PT DISCHARGED HOME AT APPROX 1345. PT AND PT'S FAMILY PROVIDED W/ VERBAL AND WRITTEN INSTRUCTIONS AND PT'S FAMILY REPORTED UNDERSTANDING. PT A&O TO SELF AND PERSON ONLY, VSS, TOLERATING PO, VOIDING, AND DENIED PAIN. BELONGINGS WERE RETURNED AND PT ESCOURTED OUT VIA W/C BY LUCAS HAZEL.
== END 2024-01-08 14:01 | disposition home or self-care (01) | DRG 382 ==
LOC: ER 11:51 → MEDS 17:21 → ENPENDDIS 01-08 13:24 → MEDS 01-08 14:01
PROVIDERS: Student in an Organized Health Care Education/Training Program; ADMIT Family Medicine
DX: K31.5 Obstruction of duodenum (principal); F03.90 Unspecified dementia, unspecified severity, without behavioral disturbance, psychotic disturbance, mood disturbance, and anxiety; I10 Essential (primary) hypertension; N40.0 Benign prostatic hyperplasia without lower urinary tract symptoms; K21.9 Gastro-esophageal reflux disease without esophagitis; M10.9 Gout, unspecified; E78.5 Hyperlipidemia, unspecified; E03.9 Hypothyroidism, unspecified; M19.90 Unspecified osteoarthritis, unspecified site; R00.1 Bradycardia, unspecified; K31.89 Other diseases of stomach and duodenum; Z85.46 Personal history of malignant neoplasm of prostate; Z87.19 Personal history of other diseases of the digestive system; Z28.21 Immunization not carried out because of patient refusal
CPT/HCPCS: 36415; 71045; 71260; 74022; 74177; 80053; 83690; 83735; 84100; 84484; 85025; 88305; 88312; 93005; 93010; 99285-25; C1726; C9113; J2704; J7120; Q9967

== ENCOUNTER → 2024-11-07 | Outpatient (CLI) | payer OTHER ==
[~2024-11-07] MED LIST changes: +CHOLESTYRAMI239.4 G1 PO
[2024-11-07 15:43] LABS: Adenovirus F 40/41 Not Detected (NOT DETECT); Astrovirus Not Detected (NOT DETECT); Campylobacter Sp Not Detected (NOT DETECT); Cryptosporidium Not Detected (NOT DETECT); Cyclospora Cayetanensis Not Detected (NOT DETECT); E. Coli O157 Not Detected (NOT DETECT); Entamoeba Histolytica Not Detected (NOT DETECT); Enteroaggregative E. coli-EAEC Not Detected (NOT DETECT); Enteropathogenic E. coli-EPEC Not Detected (NOT DETECT); Enterotoxigenic E. coli-ETEC Not Detected (NOT DETECT); Giardia Lamblia Not Detected (NOT DETECT); Norovirus GI/GII Not Detected (NOT DETECT); Plesiomonas Shigelloides Detected (NOT DETECT); Rotavirus A Not Detected (NOT DETECT); Salmonella Sp Not Detected (NOT DETECT); Sapovirus Not Detected (NOT DETECT); Shiga Toxin-prod E. coli-STEC Not Detected (NOT DETECT); Shigella/Enteroin E. coli-EIEC Not Detected (NOT DETECT); Vibrio Cholerae Not Detected (NOT DETECT); Vibrio Sp Not Detected (NOT DETECT); Yersinia Enterocolitica Not Detected (NOT DETECT)
== END | disposition home or self-care (01) ==
LOC: LAB 11-06 20:30
PROVIDERS: Family Medicine
DX: R19.7 Diarrhea, unspecified (principal)
CPT/HCPCS: 87507

== ENCOUNTER → 2025-01-05 | Outpatient (CLI) | payer OTHER ==
[2025-01-05 19:58] LABS: Adenovirus F 40/41 Not Detected (NOT DETECT); Astrovirus Not Detected (NOT DETECT); Campylobacter Sp Not Detected (NOT DETECT); Cryptosporidium Not Detected (NOT DETECT); Cyclospora Cayetanensis Not Detected (NOT DETECT); E. Coli O157 Not Detected (NOT DETECT); Entamoeba Histolytica Not Detected (NOT DETECT); Enteroaggregative E. coli-EAEC Not Detected (NOT DETECT); Enteropathogenic E. coli-EPEC Not Detected (NOT DETECT); Enterotoxigenic E. coli-ETEC Not Detected (NOT DETECT); Giardia Lamblia Not Detected (NOT DETECT); Norovirus GI/GII Not Detected (NOT DETECT); Plesiomonas Shigelloides Detected (NOT DETECT); Rotavirus A Not Detected (NOT DETECT); Salmonella Sp Not Detected (NOT DETECT); Sapovirus Not Detected (NOT DETECT); Shiga Toxin-prod E. coli-STEC Not Detected (NOT DETECT); Shigella/Enteroin E. coli-EIEC Not Detected (NOT DETECT); Vibrio Cholerae Not Detected (NOT DETECT); Vibrio Sp Not Detected (NOT DETECT); Yersinia Enterocolitica Not Detected (NOT DETECT)
== END ==
LOC: LAB SHORT 15:48 → LAB 15:48
PROVIDERS: Family Medicine
DX: K52.9 Noninfective gastroenteritis and colitis, unspecified (principal)
CPT/HCPCS: 87507

== ENCOUNTER → 2025-02-12 | Outpatient (CLI) | payer OTHER | END | disposition home or self-care (01) | LOC: PLD 07:46 → LAB 07:46 → LAB SHORT 07:46 | DX: L72.0 Epidermal cyst (principal); L08.9 Local infection of the skin and subcutaneous tissue, unspecified | CPT/HCPCS: 88304 ==

== ENCOUNTER → 2025-03-15 | Outpatient (CLI) | payer OTHER | LOC: LAB SHORT 11:19 → LAB 11:19 | DX: L02.91 Cutaneous abscess, unspecified (principal) | CPT/HCPCS: 87070; 87075; 87077; 87205 ==

== ENCOUNTER 2025-11-06 11:50 | Emergency (ER) | payer OTHER ==
[~2025-11-06] VITALS: Ht 193 cm; Wt 77.1 kg
[2025-11-06 12:07] VITALS: BP 152/76
== END 2025-11-06 14:11 | disposition home or self-care (01) ==
LOC: ER 11:50
DX: S22.028A Other fracture of second thoracic vertebra, initial encounter for closed fracture (principal); S00.93XA Contusion of unspecified part of head, initial encounter; W10.9XXA Fall (on) (from) unspecified stairs and steps, initial encounter; I10 Essential (primary) hypertension; K21.9 Gastro-esophageal reflux disease without esophagitis; F03.90 Unspecified dementia, unspecified severity, without behavioral disturbance, psychotic disturbance, mood disturbance, and anxiety
CPT/HCPCS: 70450; 72125; 99283-25

== ENCOUNTER 2025-11-08 12:18 | Observation (INO) | payer OTHER ==
[~2025-11-08] VITALS: Ht 182.9 cm; Wt 77.4 kg
[2025-11-08] MEDS ORDERED: QUETIAPINE FUMA25 MG PO (13:14)
[2025-11-08] MEDS ORDERED: ALPRAZOLAM0.5 M1 PO (13:14)
[2025-11-08 13:39] LABS: BASOPHILS ABSOLUTE AUTO 0.02 K/mm3 (0.00-0.23); BASOPHILS PERCENT AUTO 0 % (0-2); EOSINOPHILS ABSOLUTE AUTO 0.22 K/mm3 (0.00-0.68); EOSINOPHILS PERCENT AUTO 5 % (0-6); Hematocrit 33.2 % (37.0-53.0); Hemoglobin 10.9 g/dL (13.5-17.5); IMMATURE GRAN ABSOLUTE AUTO 0.01 K/mm3 (0.00-0.10); IMMATURE GRAN PERCENT AUTO 0 % (0-1); LYMPHOCYTES ABSOLUTE AUTO 0.74 K/mm3 (0.84-5.20); LYMPHOCYTES PERCENT AUTO 16 % (21-46); MONOCYTES ABSOLUTE AUTO 0.40 K/mm3 (0.16-1.47); MONOCYTES PERCENT AUTO 9 % (4-13); Mean Corpuscular HGB Conc 32.8 g/dL (31.5-36.5); Mean Corpuscular Volume 89 fL (80-100); NEUTROPHILS ABSOLUTE AUTO 3.14 K/mm3 (1.96-9.15); NEUTROPHILS PERCENT AUTO 69 % (41-73); NRBC ABSOLUTE 0.00 K/mm3 (0.00-0.02); NRBC Auto 0.0 /100 WBC (0.0-0.2); Platelet Count 213 K/mm3 (150-400); RDW Coefficient Variation 13.0 % (11.7-14.2); RDW Standard Deviation 42.9 fL (35.1-46.3)
[2025-11-08 14:02] LABS: Alanine Aminotransfer (ALT/SGP 14.0 U/L (12-78); Albumin, Blood 2.9 g/dL (3.4-5.0); Albumin/Globulin Ratio 1.1 (0.8-1.8); Anion Gap 8.0 mmol/L (3-11); Aspartate Aminotrans (AST/SGOT 16.0 U/L (12-37); Bilirubin, Total 0.4 mg/dL (0.1-1.0); Blood Urea Nitrogen 18.0 mg/dL (8-24); CO2, Blood 24.0 mmol/L (21-32); Calcium, Blood 9.0 mg/dL (8.5-10.1); Chloride, Blood 111.0 mmol/L (98-108); Creatinine, Blood 0.96 mg/dL (0.60-1.20); Globulin, Blood 2.6 g/dL (2.2-4.0); Glucose, Blood 135.0 mg/dL (70-99); Potassium, Blood 3.9 mmol/L (3.5-5.5); Sodium, Blood 139.0 mmol/L (136-145); Total Protein, Blood 5.5 g/dL (6.4-8.2)
[2025-11-08] MEDS ORDERED: FLU VACC TS2025(65UP)/MF59C/PF 45 MCG/0.5 ML SYRINGE IM SCH (16:10)
[2025-11-08] MEDS ORDERED: PNEUMOC 20-VAL CONJ-DIP CRM/PF 0.5 ML SYRINGE IM SCH (16:15)
[2025-11-08 16:37] LABS: Source, Urine Clean Catch
[2025-11-08 16:55] LABS: Bilirubin, Urine Neg (Neg); Color, Urine Yellow (P-Yellow); Glucose Qualitative, Urine Neg (Neg); Ketones, Urine Neg (Neg); Leukocyte Esterase, Urine Neg (Neg); Protein, Urine 1+ (Neg); Specific Gravity, Urine 1.020 (1.003-1.022); Urobilinogen, Urine 2+ (Normal)
--- NOTE | 2025-11-08 18:51 | NUR ---
PT ARRIVED TO ROOM 1835 PT IS CONFUSED AND VERY IMPULSIVE. PT IS EASIER TO REDIRECT WITH 2 PEOPLE. PT IS UNSTEADY TO RESTROOM. FAMILY IS NOW AT BEDSIDE AND BED ALARM IS PLACE. WILL CONTINUE TO MONITOR.
[2025-11-08 19:38] VITALS: BP 139/68
[2025-11-08 23:53] VITALS: BP 160/97
[2025-11-09 04:06] VITALS: BP 161/72
--- NOTE | 2025-11-09 05:56 | NUR ---
SHIFT SUMMARY PT ALERT TO SELF. CONFUSED AND DIFFICULT TO REDIRECT. NO C/O PAIN. FAMILY AT BEDSIDE AT START OF SHIFT. PT IMPULSIVE, BED ALARM ON DURING THE NIGHT. WALKED WITH PT IN ROOM AND UP AND DOWN READ TWICE. UNSTEADY ON FEET AT TIMES. PT PLACED IN MARCEL AROUND 0200 D/T ATTEMPTING OOB FREQUENTLY. NOTIFIED AND ORDER GIVEN. PT REMAINS SB IN THE 40'S-50'S ON TELE. COMPRESSIOIN SOCKS IN PLACE. VSS. BED ALARM ON. BED IN LOWEST POSITION AND CALL LIGHT IN REACH.
[2025-11-09 06:11] LABS: BASOPHILS ABSOLUTE AUTO 0.03 K/mm3 (0.00-0.23); BASOPHILS PERCENT AUTO 1 % (0-2); EOSINOPHILS ABSOLUTE AUTO 0.42 K/mm3 (0.00-0.68); EOSINOPHILS PERCENT AUTO 9 % (0-6); Hematocrit 35.3 % (37.0-53.0); Hemoglobin 11.8 g/dL (13.5-17.5); IMMATURE GRAN ABSOLUTE AUTO 0.01 K/mm3 (0.00-0.10); IMMATURE GRAN PERCENT AUTO 0 % (0-1); LYMPHOCYTES ABSOLUTE AUTO 1.51 K/mm3 (0.84-5.20); LYMPHOCYTES PERCENT AUTO 31 % (21-46); MONOCYTES ABSOLUTE AUTO 0.59 K/mm3 (0.16-1.47); MONOCYTES PERCENT AUTO 12 % (4-13); Mean Corpuscular HGB Conc 33.4 g/dL (31.5-36.5); Mean Corpuscular Volume 89 fL (80-100); NEUTROPHILS ABSOLUTE AUTO 2.26 K/mm3 (1.96-9.15); NEUTROPHILS PERCENT AUTO 47 % (41-73); NRBC ABSOLUTE 0.00 K/mm3 (0.00-0.02); NRBC Auto 0.0 /100 WBC (0.0-0.2); Platelet Count 213 K/mm3 (150-400); RDW Coefficient Variation 12.8 % (11.7-14.2); RDW Standard Deviation 42.1 fL (35.1-46.3)
[2025-11-09 06:42] LABS: Alanine Aminotransfer (ALT/SGP 14.0 U/L (12-78); Albumin, Blood 3.1 g/dL (3.4-5.0); Albumin/Globulin Ratio 1.1 (0.8-1.8); Anion Gap 5.0 mmol/L (3-11); Aspartate Aminotrans (AST/SGOT 11.0 U/L (12-37); Bilirubin, Total 0.5 mg/dL (0.1-1.0); Blood Urea Nitrogen 13.0 mg/dL (8-24); CO2, Blood 28.0 mmol/L (21-32); Calcium, Blood 9.6 mg/dL (8.5-10.1); Chloride, Blood 110.0 mmol/L (98-108); Creatinine, Blood 0.81 mg/dL (0.60-1.20); Globulin, Blood 2.8 g/dL (2.2-4.0); Glucose, Blood 91.0 mg/dL (70-99); Magnesium, Blood 1.8 mg/dL (1.6-2.4); Potassium, Blood 3.7 mmol/L (3.5-5.5); Sodium, Blood 139.0 mmol/L (136-145); Total Protein, Blood 5.9 g/dL (6.4-8.2)
[2025-11-09] MEDS ORDERED: Haloperidol Lactate Inj. 5 MG/ML Injection IV ONE (07:55)
[2025-11-09] MEDS ORDERED: LORazepam 2 MG/ML 1ML Injection IV ONE (08:05)
--- NOTE | 2025-11-09 08:27 | NUR ---
PALLIATIVE CARE CONSULT: CONSULT RECEIVED FOR CARDIAC, ADVANCED CARE PLANNING, DEMENTIA, END OF LIFE COMFORT CARE AND SYMPTOM MANAGEMENT. REVIEWED MEDICAL RECORD. T HAS POLST THROUGH [facility] STATING DNR PER MD H&P. NONE ON FILE WITH HOSPITAL OR [facility]. REVIEWED LABS, CRITERIA FOR HOSPICE. AT THIS TIME IT WOULD BE DIFFICULT TO QUALIFY PT FOR HOSPICE. WOULD RECOMMEND DISCONTINUING ATIVAN, XANAX AND SCHEDULE TYENOL TO SEE IF AGITATION IS PAIN RELATED. WILL REACH OUT TO TODAY.
[2025-11-09] MEDS ORDERED: Enoxaparin 40 MG/0.4 ML SYR SC SCH (09:00)
--- NOTE | 2025-11-09 09:50 | NUR ---
"Spiritual care Consult | Orderd by Maximus Yu DO Pt. is sitting up on the side of his bed fully dressed. Spouse is at bedside and welcomes my visit. Very quickly the Pts. confusion is observed. Facilitated an update with the spouse. Matters of sabine and belief are considered. Pt. displays evidence of not understanding the substance of the life review. Prayed with the Pt. Spouse verbalized gratitude for the spiritual care visit."
--- NOTE | 2025-11-09 12:58 | NUR ---
DISCHARGE NOTE PT AND EDUCATED ON BRADYCARDIA. NO NEW PRESECRIPTIONS. ECHO WAS COMPLETED BAND INSTRUMENT REPAIRER CLEARED FOR DC. IV REMOVED. TELE SENT BACK TO PCU. ONLY ONE HOME MED STOPPED VERIFIED UNDERSTANDING. NO NEW QUESTIONS OR CONCERNS PRIOR TO DC. ESCORTED DOWN VIA WHEELCHAIR BY INTELLIGENT SYSTEMS ENGINEER.
== END 2025-11-09 13:00 | disposition home or self-care (01) ==
LOC: ER 12:18 → MEDS 12:19
PROVIDERS: Emergency Medicine; ADMIT Family Medicine
DX: R00.1 Bradycardia, unspecified (principal); R55 Syncope and collapse; R47.1 Dysarthria and anarthria; E03.9 Hypothyroidism, unspecified; F03.911 Unspecified dementia, unspecified severity, with agitation; Z66 Do not resuscitate; Z91.09 Other allergy status, other than to drugs and biological substances; Z79.890 Hormone replacement therapy; Z79.899 Other long term (current) drug therapy
CPT/HCPCS: 36415; 80053; 83735; 84443; 84484; 85025; 87086; 93005; 93010; 93306; 99285-25; A9270; G0378